=== PATIENT | female | born 2000 | race Hispanic/Latino ===

== ENCOUNTER 2019-07-04 12:00 | Emergency (ER) | payer OTHER ==
[~2019-07-04] VITALS: Ht 167.6 cm; Wt 55.1 kg
[2019-07-04 12:02] VITALS: BP 118/67
[2019-07-04] MEDS ORDERED: NEXP1IMP SC (12:09)
== END 2019-07-04 12:43 | disposition home or self-care (01) ==
LOC: M ED 12:00
DX: H72.91 Unspecified perforation of tympanic membrane, right ear (principal); S09.21XA Traumatic rupture of right ear drum, initial encounter; X58.XXXA Exposure to other specified factors, initial encounter; Y92.9 Unspecified place or not applicable; Y93.89 Activity, other specified; Y99.9 Unspecified external cause status; Z79.3 Long term (current) use of hormonal contraceptives

== ENCOUNTER 2019-12-12 09:33 | Emergency (ER) | payer OTHER, SELFPAY ==
[~2019-12-12] VITALS: Ht 167.6 cm; Wt 50.2 kg
[2019-12-12 09:33] VITALS: BP 116/81
[~2019-12-12 09:33] MED LIST: NEXP1IMP SC
[2019-12-12] MEDS ORDERED: NON-325T5 PO (09:55)
[2019-12-12] MEDS ORDERED: BENA25CA4 PO (09:55)
[2019-12-13] MEDS ORDERED: IBUP200C25 PO (13:46)
[2019-12-13] MEDS ORDERED: KEFL500C17 PO (14:24)
[2019-12-13] MEDS ORDERED: PRED10TA2 PO (14:24)
== END 2019-12-12 10:41 | disposition home or self-care (01) ==
LOC: M ED 09:33
DX: T63.441A Toxic effect of venom of bees, accidental (unintentional), initial encounter (principal); Y92.9 Unspecified place or not applicable; Y93.9 Activity, unspecified

== ENCOUNTER 2019-12-13 13:32 | Emergency (ER) | payer OTHER ==
[~2019-12-13] VITALS: Ht 167.6 cm; Wt 51.6 kg
[~2019-12-13 13:32] MED LIST changes: +BENA25CA4 PO; +NON-325T5 PO
[2019-12-13] MEDS ORDERED: IBUP200C25 PO (13:46)
[2019-12-13] MEDS ORDERED: PRED10TA2 PO (14:24)
[2019-12-13] MEDS ORDERED: KEFL500C17 PO (14:24)
[2019-12-13] MEDS ORDERED: CEPHALEXIN 500 MG CAP PO ONE (14:30)
[2019-12-13] MEDS ORDERED: predniSONE 20 MG TAB PO ONE (14:30)
[2019-12-13 14:35] VITALS: BP 112/60
== END 2019-12-13 14:39 | disposition home or self-care (01) ==
LOC: M ED 13:32
DX: L03.113 Cellulitis of right upper limb (principal); R22.31 Localized swelling, mass and lump, right upper limb

== ENCOUNTER 2019-12-16 11:18 | Emergency (ER) | payer OTHER ==
[~2019-12-16] VITALS: Ht 167.6 cm; Wt 52.1 kg
[~2019-12-16 11:18] MED LIST changes: +IBUP200C25 PO; +KEFL500C17 PO; +PRED10TA2 PO
[2019-12-16 12:19] VITALS: BP 127/71
== END 2019-12-16 12:58 | disposition home or self-care (01) ==
LOC: M ED 11:18
DX: T63.441A Toxic effect of venom of bees, accidental (unintentional), initial encounter (principal); Y92.9 Unspecified place or not applicable; Y93.9 Activity, unspecified

== ENCOUNTER → 2020-10-06 | Outpatient (CLI) | payer OTHER ==
[~2020-10-06] MED LIST changes: +ACET32TAB PO; -NON-325T5 PO
--- NOTE | 2020-10-07 00:04 | REP ---
INDICATION: PREG DI/DI TWIN GROWTH COMPARISON: None. TECHNIQUE: Transabdominal obstetrical ultrasound with color Doppler evaluation. FINDINGS: Examination demonstrates diamniotic dichorionic twin gestation. Cervix measures 2.9 cm cm in length and appears closed. Concordant growth is noted. Gestational age by LMP at 32 weeks 1 day with estimated date of delivery 11/30/2020. TWIN A: Twin A identified in cephalic presentation along the maternal left side. Placenta is noted posterior and grade 2 without evidence for placenta previa or abruption. motion is appreciated. Amniotic fluid volume is normal and the deepest pocket measures 4.7 cm. FHR equals 140 beats per minute. Gestational age by current measurements: 32 weeks 4 days. Estimated weight 2112 grams (71st percentile). Limited anatomical assessment without obvious abnormality. TWIN B: Twin B identified in transverse presentation along the maternal right side. Placenta is noted anterior and grade 2 without evidence for placenta previa or abruption. motion is appreciated. Amniotic fluid volume is normal and the deepest pocket measures 6.1 cm. FHR equals 165 beats per minute. Gestational age by current measurements: 32 weeks 0 days. Estimated weight 1941 grams (45th percentile). Limited anatomical assessment without obvious abnormality. IMPRESSION: Diamniotic dichorionic twin gestation demonstrating appropriate concordant growth. No gross abnormalities are identified. <Electronically signed by Rajeev Johnson > 10/07/20 0000
== END ==
LOC: M RAD 15:11
PROVIDERS: ATTEND Obstetrics & Gynecology
DX: O30.043 Twin pregnancy, dichorionic/diamniotic, third trimester (principal); Z3A.32 32 weeks gestation of pregnancy

== ENCOUNTER 2020-11-04 15:07 | Outpatient (CLI) | payer OTHER ==
[~2020-11-04] VITALS: Ht 167.6 cm; Wt 83.3 kg
[2020-11-04 15:32] VITALS: BP 141/81
[2020-11-04] MEDS ORDERED: VITA100T59 PO (15:36)
[2020-11-04] MEDS ORDERED: PRENTAB9 PO (15:36)
[2020-11-04] MEDS ORDERED: FOLI400T13 PO (15:36)
[2020-11-04] MEDS ORDERED: ASPI81CH33 PO (15:36)
[2020-11-04] MEDS ORDERED: HOME MED LIST COMPLETE! XX SCH (15:40)
[2020-11-04 16:45] VITALS: BP 133/90
[2020-11-04 16:46] VITALS: BP 144/83
--- NOTE | 2020-11-04 17:22 | IPNPDOC ---
Text Note Date of Service The patient was seen on 11/04/20. NOTE 1700 hours PATIENT SENT FROM CLINIC FOR PROLONGED MONITORING . RISK FACTORS DI/DI TWINS AT 36.6 WEEKS LMP 01/20/20 EDC BY US AT 7.2 WEEKS 11/30/20 , VEGAN BMI 14.1 EXAMINATION NST CATEGORY 1 STRIP X2 OCCASIONAL CONTRACTIONS ACCELERATIONS NOTED NO DECELERATIONS , CERVICAL EXAMINATION POSTERIOR HIGH ND THICK VERTEX BALLOTABLE PLAN CONTINUE WITH SCHEDULED MONITORING AT CLINIC REVIEWED PROM BLEEDING CONTRACTIONS Q 5-7 MINUTES GBS PENDING . EXPRESSED UNDERSTANDING DISCHARGED UNDELIVERED VS,Fishbone, I+O VS, Fishbone, I+O Vital Signs Date Time Temp Pulse Resp B/P (MAP) Pulse Ox O2 Delivery O2 Flow Rate FiO2 11/04/20 15:32 97.6 84 14 141/81 (101) Tolu Garcia MD Nov 04, 2020 17:22
== END 2020-11-04 17:15 | disposition home or self-care (01) ==
LOC: M LDO 15:07
PROVIDERS: ATTEND Obstetrics & Gynecology
DX: O60.03 Preterm labor without delivery, third trimester (principal); Z3A.38 38 weeks gestation of pregnancy; O30.043 Twin pregnancy, dichorionic/diamniotic, third trimester
CPT/HCPCS: 59025; G0378; G0463

== ENCOUNTER 2020-11-04 22:30 | Inpatient (IN) | payer OTHER ==
[~2020-11-04] VITALS: Ht 167.6 cm; Wt 83.2 kg
[~2020-11-04 22:30] MED LIST changes: +ASPI81CH33 PO; +FOLI400T13 PO; +PRENTAB9 PO; +VITA100T59 PO
[2020-11-04 23:11] VITALS: BP 135/81
[2020-11-04] MEDS ORDERED: OXYTOCIN INJ 10 UNITS/ML VIAL (J2590) IV PRN (23:45)
[2020-11-04] MEDS ORDERED: LACTATED RINGER'S 1000 ML IV ONE (23:45)
[2020-11-04] MEDS ORDERED: METHYLERGONOVINE MALEATE 0.2 MG/ML VIAL (J2210) IM PRN (23:45)
[2020-11-04] MEDS ORDERED: OXYTOCIN DRIP 30 UNITS in IV 1 EA IV PRN ×4 (23:45)
[2020-11-04] MEDS: LR 1,000 ML IV SCH (23:45)
[2020-11-04] MEDS ORDERED: PENICILLIN G POTASSIUM IV 5 MU in D5W MINI-BAG PLUS 100 ML IV STA (23:45)
[2020-11-04] MEDS ORDERED: CARBOPROST TROMETHAMINE 250 MCG/ML AMP IM PRN (23:45)
[2020-11-05] VITALS (43 sets, daily range): BP systolic 94–152; BP diastolic 55–89
[2020-11-05 00:10] LABS: HEMATOCRIT 34.4 % (36.0-47.0); HEMOGLOBIN 11.8 g/dl (12.0-15.5); MEAN CORPUSCULAR HEMOGLOBIN 33.1 pg (27.0-33.0); MEAN CORPUSCULAR HGB CONC 34.3 g/dl (32.0-36.5); MEAN CORPUSCULAR VOLUME 96.6 fl (80.0-96.0); PLATELET COUNT, AUTOMATED 189 10^3/uL (150-450); RED BLOOD COUNT 3.56 10^6/uL (4.00-5.40); WHITE BLOOD COUNT 9.5 10^3/uL (4.0-10.0)
[2020-11-05 00:15] LABS: ALT/SGPT 17 U/L (12-78); BILIRUBIN,TOTAL 0.3 MG/DL (0.2-1.0); CREATININE FOR GFR 0.51 MG/DL (0.55-1.30); GLOMERULAR FILTRATION RATE > 60.0 (>60); LDH LACTATE DEHYDROGENASE 165 U/L (84-246)
[2020-11-05 00:31] LABS: CREATININE,RANDOM URINE 37.2 MG/DL; TOTAL PROTEIN,RANDOM URINE 28.8 MG/DL (0.0-12.0)
--- NOTE | 2020-11-05 00:52 | HPEPDOC ---
Obstetrical History & Physical General Date of Admission Item Value Date Time Urine Random Total Protein 28.8 MG/DL H 11/04/202302 Urine Random Creatinine 37.2 MG/DL 11/04/202302 Item Value Date Time Lactate Dehydrogenase 165 U/L 11/04/202302 Alanine Aminotransferase (ALT/SGPT) 17 U/L 11/04/202302 Aspartate Amino Transf (AST/SGOT) 16 U/L 11/04/202302 Total Bilirubin 0.3 MG/DL 11/04/202302 Uric Acid 6.0 MG/DL 11/04/202302 Glomerular Filtration Rate > 60.0 11/04/202302 Creatinine 0.51 MG/DL L 11/04/202302 Item Value Date Time White Blood Count 9.5 10^3/uL 11/04/202302 Red Blood Count 3.56 10^6/uL L 11/04/202302 Hemoglobin 11.8 g/dl L 11/04/202302 Hematocrit 34.4 % L 11/04/202302 Mean Corpuscular Volume 96.6 fl H 11/04/202302 Mean Corpuscular Hemoglobin 33.1 pg H 11/04/202302 Mean Corpuscular Hemoglobin Concent 34.3 g/dl 11/04/202302 Red Cell Distribution Width 12.4 % 11/04/202302 Platelet Count 189 10^3/uL 11/04/203 Nov 04, 2020 at 23:30 Primary Care Physician: Tolu Garcia MD History of Present Illness 2359 PM 20 YO AT 36.4 WEEKS HX SROM CLEAR NO CONTRACTIONS GBS STATUS UNKNOWN.LMP 01/20/20 EDC BY US 7.2 WEEKS 11/30/20 Chief Complaint: Contractions, pre-term (SROM CLEAR FLUID ) Information Provided By: Patient Age: 20 : 1 Term: 0 Pre-term: 0 Abortions: 0 Livin Care Care: Good Care Number of Visits: 9 Dating Final EDC: Nov 30, 2020 Final EDC for Daily Update: Nov 30, 2020 Final EDC by: LMP LMP: Jan 20, 2020 1st Trimester Date: Apr 15, 2020 Weeks + Days: 7.2 Estimated Date of Confinement: Nov 30, 2020 EGA at Admission: 36.3 Antepartum Course Diagnos(e)s SROM AT 36.3 WEEKS DI/DI TWINS Height (inches): 66 Pre- weight (lbs.): 114 Admission Weight (lbs.): 183 Change in Weight (lbs.): 69 Past Medical History Past Obstetrical History : Past Obstetrical History: Primgravida [employer] History: No pertinent history Past Medical History Medical History NO PERTENANT HISTORY Surgical History: [place] teeth Family History Significant Family History: Cancer (BREAST CANCER GRAND MOTHER, DM11 GRAND FATHER) Social History Social history NON SMOKER NO VAPING NO ETOH NO RECREATIONAL DRUGS, NO VIOLENCE Marital Status: Family situation: Spouse/partner home Psychosocial History: PTSD (SEES ) * Smoker: non-smoker Alcohol: Denies Drugs: denies Abuse Violence Screening Have you been hit/kicked/slapp: No Have you been sexually assault: No Imunizations Tdap status: current Influenza Status: current Allergies Coded Allergies: No Known Allergies (Verified Allergy, Unknown, 07/04/19) Medications Scheduled Ascorbic Acid (Vitamin C) 100 Mg Tablet, 1 TAB PO DAILY Aspirin (Aspirin) 81 Mg Tab.chew, 81 MG PO DAILY for pain Folic Acid (Folic Acid) 0.4 Mg Tablet, 1 TAB PO DAILY No.137/Iron/Folic Acd ( Vitamin Tablet) 1 Each Tablet, 1 TAB PO DAILY Physical Examination Physical Examination GENERAL: Alert and oriented times three. BREAST: . ABDOMEN: Gravid and non-tender to touch. FETUS: Is vertex (VTX) by sterile vaginal examination (SVE), fetus is vertex (VTX) by Cristian. CONFIRMED SROM CLEAR HEART RATE: Regular rate and rhythm. LUNGS: Clear to auscultation (CTA). EXTREMITIES: No edema. No clonus. Deep tendon reflexes (DTRs) + . Other physical findings DISTRESSED WITH SROM AND DELIVERY WAS NOT PREPARED. NORMOCEPHALIC PERRLA, ATRAUMATIC NECK FULL RANGE MOTION, CHEST CLEAR TO BASES DISTAL PULSES NORMAL NO RHALS, NO WHEEZE NO RHONCHI NO CVA TENDERNESS ABDOMEN SOFT SF HEIGHT 36 CM 4 QUADRANT BOWEL SOUNDS VERTEX TWIN A T/S BACK UP TWIN B NO RASHES LESIONS OR PARIETIS. NO ARTHRALGIA,MYALGIA, NO JOINT PAIN. NO COMPLAINT COUGH WHEEZE NO SOB NO FREQUENCY NO URGENCY NO BRUISING NO NEURO DEFECTS REFLEXES NORMAL NO N/V/D/C NO DIABETIC OR VIRAL ISSUES Vital Signs/I&O Vital Signs Date Time Temp Pulse Resp B/P (MAP) Pulse Ox O2 Delivery O2 Flow Rate FiO2 11/04/20 23:11 103 135/81 (99) Laboratory Data 24H LABS Laboratory Tests 2 11/04/20 23:39: Serology Scanned Report Hepatitis B Testing Pertinent Laboratoy Data Blood Type: A+ RBC Antibody Screen: Negative HIV: Negative Hepatitis B: Negative Rapid Plasma Reagin: Nonreactive Rubella: Immune Varicella: Nonreactive Chlamydia/Gonorrhea: Negative Group B Streptococcus: Unknown Cystic Fibrosis: Negative Anatomy Ultrasound Ultrasound Date: Oct 06, 2020 Placenta Location: Anterior Normal Anatomy: Yes Placenta Previa: No Estimated Weight (grams): 2111 Other Ultrasounds DI/DI TWINS TWIN A VERTEX 2111 GRAMS TWIN B T/ 1940 GRAMS Steroid Therapy Steroid Therapy: No Vaginal Examination Dilation: Fingertip Effacement: 30% Station: -3 Cervical Consistency: Medium Cervical Position: Posterior Presentation: Cephalic presentation Position: Four quadrants, Vertex (occiput) Assessment Variability: Moderate Accelerations: Present Decelerations: None Tocometer Contractions: Yes Frequency: irregular, every 1-5 min. Duration: less than 60 seconds Strength: palpated as mild Assessment/Plan Assessment 20 year-old (G)1 para (P)0 at 36,3 weeks by 7.2 -week ultrasound. Presents to Labor and Delivery (L&D) SROM CLEAR . 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 Diet: NPO Group B Streptococcus (GBS) UNKNOWN Labs and intravenous (IV) per unit protocol. Counseled on Pitocin and AUGMENTATION Lactated Ringers (LR): Bolus 1000mL, PRE EPIDURAL then at 125 mL/hr. Anticipate [normal spontaneous delivery ()].X2 C-S as appropriate. Labor and Delivery Counseling REVIEWED DELIVERY VAGINAL OF TWINS RE DI/DI . TWIN A VERTEX ANTICIPATE PROGRESSION REVIEW STATUS OF TWIN B EITHER VERTEX OR BREECH, ASSESSMENT RE BREECH EXTRACTION OR VERSION TO VERTEX POSSIBLE USE OF FORCEPS OR VACUUM POSSIBLE NEED FOR EMERGENCY CS FOR REASONS IF REMOTE FROM DELIVERY. NEED FOR AUGMENTATION MAY LEAD TO UTERINE ASYSTOLE UTERINE RUPTURE EMERGENCY CS . WITH TWINS HIGHER RISK OF UTERINE ATONY LEADING TO BLOOD TRANSFUSIONS OR RISK OF HYSTERECTOMY FOR LIFE THREATENING BLEEDING. POSSIBLE OF ADMISSION TO NICU FOR TRANSITION. NICU NOTIFIED ABOUT ADMISSION PRE TERM AND GBS STATUS EXPRESSED UNDERSTANDING SAFE TO PROCEED 30 MINUTES DISCUSSION . P/C RATIO .77 Tolu Garcia MD Nov 05, 2020 00:36
[2020-11-05] MEDS ORDERED: FENTANYL 2MCG/ML ROPIVACAINE 0.2% IN 0.9% NACL 100ML IVBAG As Ordered ONE ×2 (03:30→11:10)
[2020-11-05] MEDS: PENICILLIN G POTASSIUM IV 2.5 MU in IV 1 EA IV SCH ×4 (03:45→16:00)
--- NOTE | 2020-11-05 06:23 | IPNPDOC ---
Text Note Date of Service Item Value Date Time Urine Random Creatinine 37.2 MG/DL 11/04/202302 Urine Random Total Protein 28.8 MG/DL H 11/04/202302 Item Value Date Time Creatinine 0.51 MG/DL L 11/04/202302 Glomerular Filtration Rate > 60.0 11/04/202302 Uric Acid 6.0 MG/DL 11/04/202302 Total Bilirubin 0.3 MG/DL 11/04/202302 Aspartate Amino Transf (AST/SGOT) 16 U/L 11/04/202302 Alanine Aminotransferase (ALT/SGPT) 17 U/L 11/04/202302 Lactate Dehydrogenase 165 U/L 11/04/202302 Item Value Date Time White Blood Count 9.5 10^3/uL 11/04/202302 Red Blood Count 3.56 10^6/uL L 11/04/202302 Hemoglobin 11.8 g/dl L 11/04/202302 Hematocrit 34.4 % L 11/04/202302 Mean Corpuscular Volume 96.6 fl H 11/04/202302 Mean Corpuscular Hemoglobin 33.1 pg H 11/04/202302 Mean Corpuscular Hemoglobin Concent 34.3 g/dl 11/04/202302 Red Cell Distribution Width 12.4 % 11/04/202302 Platelet Count 189 10^3/uL 11/04/202302 The patient was seen on 11/05/20. NOTE 0600 11/05/2020 assessment post epidural category 1 strip x2 moderate variability x2 baseline normal x2 contractions 1-3 minutes , pelvic examination anterior 2 cm -3 station 50% effaced . safe to proceed VS,Fishbone, I+O VS, Fishbone, I+O Laboratory Tests 11/04/20 23:03 Vital Signs Date Time Temp Pulse Resp B/P (MAP) Pulse Ox O2 Delivery O2 Flow Rate FiO2 11/04/20 23:11 103 135/81 (99) Tolu Garcia MD Nov 05, 2020 06:21
[2020-11-05] MEDS: LR 1,000 ML IV SCH (08:02)
[2020-11-05] MEDS ORDERED: OXYTOCIN DRIP 30 UNITS in IV 1 EA IV SCH (08:35)
[2020-11-05] MEDS ORDERED: ONDANSETRON 4MG/2ML VIAL IV PRN (11:05)
[2020-11-05] MEDS ORDERED: EPIDURAL COMMENT XX SCH (11:05)
[2020-11-05] MEDS ORDERED: diphenhydrAMINE 50MG/ML VIAL (J1200) IV PRN (11:05)
[2020-11-05] MEDS ORDERED: ePHEDrine SULFATE 25 MG/5 ML(5MG/ML) SYRINGE IV PRN (11:05)
[2020-11-05] MEDS ORDERED: EPIDURAL/PCA KEYS XX PRN (11:05)
[2020-11-05] MEDS ORDERED: REFRIGERATOR IV KEYS XX PRN (11:05)
[2020-11-05] MEDS ORDERED: NALOXONE INJ 0.4MG/1ML VIAL (J2310 PER 1MG) IV PRN (11:05)
[2020-11-05] MEDS ORDERED: FENTANYL/ROPIVACAINE/NACL BAG 100 ML EPIDURAL SCH (11:05)
[2020-11-05] MEDS ORDERED: LACTATED RINGER'S 1000 ML IV PRN (11:05)
[2020-11-05 14:25] LABS: CORD GAS ABE A -2.9; CORD GAS HCO3 A 21.5 MEQ/L; CORD GAS O2 SAT A 92.2 %; CORD GAS PH A 7.382 UNITS; CORD GAS PO2 A 48.4 mmHg; CORD GAS TCO2 A 22.6 MEQ/L
[2020-11-05 14:26] LABS: CORD GAS ABE V -9.9; CORD GAS HCO3 V 17.4 MEQ/L; CORD GAS O2 SAT V 95.1 %; CORD GAS PCO2 V 42.6 mmHg; CORD GAS PH V 7.228 UNITS; CORD GAS PO2 V 63.3 mmHg; CORD GAS SBC V 16.9 MEQ/L; CORD GAS TCO2 V 18.7 MEQ/L
[2020-11-05] MEDS ORDERED: LIDOCAINE 1% MDV 20ML VIAL As Ordered ONE (14:42)
[2020-11-05 14:47] LABS: CORD GAS ABE A -4.2; CORD GAS ABE V -8.5; CORD GAS HCO3 A 20.4 MEQ/L; CORD GAS HCO3 V 20.7 MEQ/L; CORD GAS O2 SAT A 90.5 %; CORD GAS O2 SAT V 77.1 %; CORD GAS PCO2 A 36.9 mmHg; CORD GAS PCO2 V 55.8 mmHg; CORD GAS PH A 7.361 UNITS; CORD GAS PH V 7.187 UNITS; CORD GAS PO2 A 45.6 mmHg; CORD GAS PO2 V 36.8 mmHg; CORD GAS SBC A 20.8 MEQ/L; CORD GAS SBC V 17.4 MEQ/L; CORD GAS TCO2 A 21.6 MEQ/L; CORD GAS TCO2 V 22.4 MEQ/L
[2020-11-05] MEDS ORDERED: LIDOCAINE 1% MDV 20ML VIAL INFIL ONE (15:00)
--- NOTE | 2020-11-05 15:17 | DNPDOC ---
[facility] Delivery Note Delivery Note DATE OF DELIVERY: 11/05/20 PREDELIVERY DIAGNOSIS: 36+4/7 weeks' gestation and labor. POST DELIVERY DIAGNOSIS: Delivered. PROCEDURE: Induction of labor, amniotomy, Spontaneous vaginal delivery of dichorionic diamniotic twins DIRECTOR PARK: Dr. Arsalan Eduardo DO DIP UNIT OPERATOR: Dr. Colleen Levy DO ANESTHESIA: epidural ESTIMATED BLOOD LOSS: 30 mL. FINDINGS: baby A 2740g 9/9, baby B 2700g 9/9 DELIVERY SUMMARY: Ms. Gabriel is a 20yo at 36+4 who presented with PPROM with di di twins. She was ultrasounded and both babies were cephalic with minimal discordance. She was induced with pitocin and progressed to C/C/+3 and with good maternal effort she delivered the head of baby A followed by the corpus without difficulty. There was a tight nuchal cord that was reduced at the perineum. The cord was clamped and a segment obtained for gasses. The placenta was tagged with one plastic clamp. The baby had spontaneous movement and cry. Ultrasound was performed in complication with palpation and baby B remained cephalic. A few contractions were needed to bring baby B closer to the cervix and occlude umbilical entrapment. Then an amniotomy was performed for baby B and the cervix was 9cm. The fluid was blood tinged. She progressed to C/C/+3 and with good maternal effort delivered baby B. The baby had spontaneous movement and cry. The delivery was assisted by the father of the baby. The cord clamping was delayed 60s and then cut buy the father of the baby. A segment was obtained for gasses. The placenta was tagged with two plastic clamps. The placentas delivered as one with gentle downward traction. They were inspected and were in-tact, connected only by amniotic membranes. The uteurs was firm with pitocin and bimanual massage. There was a second degree laceration that was repaired with 2-0 vicryl in the usual fashion. The surgical site was hemostatic. The uterus remained firm and bleeding scant. The sponge, lap, and needle counts were correct. There were no complications. ARSALAN EDUARDO DO Nov 05, 2020 15:17
[2020-11-05] MEDS ORDERED: DOCUSATE SODIUM 100MG CAPSULE PO PRN (15:20)
[2020-11-05] MEDS ORDERED: DIBUCAINE 1% OINTMENT 30GM TOP PRN (15:20)
[2020-11-05] MEDS ORDERED: ACETAMINOPHEN TAB 650MG DOSE (2X325MG) PO PRN (15:20)
[2020-11-05] MEDS ORDERED: IBUPROFEN 600MG TAB PO PRN (15:20)
[2020-11-05] MEDS: ACETAMINOPHEN 500 MG TAB PO PRN (16:08)
[2020-11-05] MEDS: IBUPROFEN 800 MG TAB PO PRN (19:16)
[2020-11-06] MEDS: ACETAMINOPHEN 500 MG TAB PO PRN ×2 (01:05→19:40)
--- NOTE | 2020-11-06 05:29 | IPNPDOC ---
Progress Note Date of Service: Nov 06, 2020 Day#: 1 Progress Note Ms. Gabriel is a 20yo who presented with PPROM with di di twins at 36 wks and was inducted. She had an uncomplicated vaginal delivery x2, baby A 2740g 9/9, baby B 2700g 9/9, with a second degree midline laceration. She has been ambulating, voiding spontaneously without issue and tolerating regular diet. Breast feeding without issue. Reports lochia is less than a normal period]. Patient is ambulating well. [Reports some cramping with . Denies any pain. Voiding and stooling without difficulty]. OBJECTIVE: VITAL SIGNS: Within normal limits, afebrile. Alert and oriented times three. No increased WOB Heart rate: non-tachycardic Abdomen: Fundus firm at U-2. Soft, NTTP. [Minimal] lochia per patient ASSESSMENT: [Ms. Gabriel is a 20yo who presented with PPROM with di di twins at 36 wks and was inducted. She had an uncomplicated vaginal delivery x2, baby A 2740g 9/9, baby B 2700g 9/9, with a second degree midline laceration. Vitals within normal limits, afebrile, hemodynamically stable with no evidence of infection. PLAN: 1. Discharge to home likely tomorrow 2. Tylenol and Motrin for pain. 3. Encourage breast feeding and ambulation. 4. Undecided contraception, educated on risk of close interval . 5. Routine PP visit in 6 weeks in clinic. 6. Discussed return precautions at length to include pelvic rest. 7. Recommended varicella vaccine. VS, I&O, 24H, Fishbone Vital Signs/I&O Vital Signs Date Time Temp Pulse Resp B/P (MAP) Pulse Ox O2 Delivery O2 Flow Rate FiO2 11/05/20 18:01 99.3 84 18 123/73 (90) I&O- Last 24 Hours up to 6 AM 11/06/20 06:00 Intake Total 3722.2 ml Output Total 2225 ml Balance 1497.2 ml Laboratory Data 24H LABS Laboratory Tests 2 11/05/20 14:19: Cord Arterial Blood pH 7.382, Cord Arterial Blood PCO2 37.0, Cord Arterial Blood PO2 48.4, Cord Arterial Blood HCO3 21.5, Cord Arterial Blood Total CO2 22.6, Cord Arterial Blood Base Excess -2.9, Cord Arterial Base Excess (Standard 22.0, Cord Arterial Bld Oxygen Saturation 92.2, Cord Venous Blood pH 7.228, Cord Venous Blood PCO2 42.6, Cord Venous Blood PO2 63.3, Cord Venous Blood HCO3 17.4, Cord Venous Blood Total CO2 18.7, Cord Venous Base Excess (Actual) -9.9, Cord Venous Base Excess (Standard) 16.9, Cord Venous Blood Oxygen Saturation 95.1 11/05/20 14:25: Cord Arterial Blood pH 7.361, Cord Arterial Blood PCO2 36.9, Cord Arterial Blood PO2 45.6, Cord Arterial Blood HCO3 20.4, Cord Arterial Blood Total CO2 21.6, Cord Arterial Blood Base Excess -4.2, Cord Arterial Base Excess (Standard 20.8, Cord Arterial Bld Oxygen Saturation 90.5, Cord Venous Blood pH 7.187, Cord Venous Blood PCO2 55.8, Cord Venous Blood PO2 36.8, Cord Venous Blood HCO3 20.7, Cord Venous Blood Total CO2 22.4, Cord Venous Base Excess (Actual) -8.5, Cord Venous Base Excess (Standard) 17.4, Cord Venous Blood Oxygen Saturation 77.1 LYNN EDUARDO DO Nov 06, 2020 05:29
[2020-11-06] MEDS: IBUPROFEN 800 MG TAB PO PRN ×2 (06:06→14:25)
[2020-11-06 06:16] VITALS: BP 135/82
[2020-11-06] MEDS: PRENATAL VITAMINS CHEWABLE TABLET PO SCH (14:28)
[2020-11-06 18:00] VITALS: BP 128/79
[2020-11-07] MEDS: ACETAMINOPHEN 500 MG TAB PO PRN ×2 (05:18→23:55)
[2020-11-07 06:00] VITALS: BP 123/76
[2020-11-07] MEDS: PRENATAL VITAMINS CHEWABLE TABLET PO SCH (08:32)
[2020-11-07] MEDS: IBUPROFEN 800 MG TAB PO PRN ×2 (08:33→17:29)
[2020-11-07 17:57] VITALS: BP 135/85
--- NOTE | 2020-11-08 05:52 | IPNPDOC ---
Progress Note Date of Service: Nov 07, 2020 Day#: 2 Progress Note Ms. Gabriel is a 20yo who presented with PPROM with di di twins at 36 wks and was induced. She had an uncomplicated vaginal delivery x2, baby A 2740g 9/9, baby B 2700g 9/9, with a second degree midline laceration. She has been ambulating, voiding spontaneously without issue and tolerating regular diet. Breast feeding without issue. Reports lochia is less than a normal period. OBJECTIVE: VITAL SIGNS: Within normal limits, afebrile. Alert and oriented times three. No increased WOB Heart rate: non-tachycardic Abdomen: Fundus firm at U-2. Soft, NTTP Parineum. ASSESSMENT: Ms. Gabriel is a 20yo PPD2 who presented with PPROM with di di twins at 36 wks and was inducted. She had an uncomplicated vaginal delivery x2, baby A 2740g 9/9, baby B 2700g 9/9, with a second degree midline laceration. Vitals within normal limits, afebrile, hemodynamically stable with no evidence of infection. PLAN: 1. Discharge to home likely tomorrow 2. Tylenol and Motrin for pain. 3. Encourage breast feeding and ambulation. 4. Undecided contraception, educated on risk of close interval . 5. Routine PP visit in 6 weeks in clinic. 6. Discussed return precautions at length to include pelvic rest. 7. Recommended varicella vaccine. VS, I&O, 24H, Fishbone Vital Signs/I&O Vital Signs Date Time Temp Pulse Resp B/P (MAP) Pulse Ox O2 Delivery O2 Flow Rate FiO2 11/07/20 06:00 98.8 64 16 123/76 (92) 99 Room Air PAOLO CHATMAN MD Nov 07, 2020 9:32 am
[2020-11-08 06:00] VITALS: BP 134/83
[2020-11-08] MEDS: PRENATAL VITAMINS CHEWABLE TABLET PO SCH (07:15)
[2020-11-08] MEDS: IBUPROFEN 800 MG TAB PO PRN (07:15)
--- NOTE | 2020-11-08 07:20 | OBDS ---
[facility] Obstetrical Discharge Sum. Obstetrical Discharge Summary Date: Nov 08, 2020 Time: 05:53 VDRL: ABO Blood Group (A) Rh: Positive Sex: Female A/P, Post Course List any complications Admission diagnosis: PPROM, D/D Twin Discharge diagnosis: same and delivered Condition at Discharge: stable Discharge Instructions:Home Activity: pelvic rest for 6 weeks Diet: regular Medications: at [place] Follow-up: 6 weeks in clinic Other: n/a Ms. Gabriel is a 20yo who presented with PPROM with di di twins at 36 wks and was induced. She had an uncomplicated vaginal delivery x2, baby A 2740g 9/9, baby B 2700g 9/9, with a second degree midline laceration. She has been ambulating, voiding spontaneously without issue and tolerating regular diet. Breast feeding without issue. Reports lochia is less than a normal period. OBJECTIVE: VITAL SIGNS: Within normal limits, afebrile. Alert and oriented times three. No increased WOB Heart rate: non-tachycardic Abdomen: Fundus firm at U-2. Soft, NTTP Parineum. ASSESSMENT: Ms. Gabriel is a 20yo PPD3 who presented with PPROM with di di twins at 36 wks and was induced. She had an uncomplicated vaginal delivery x2, baby A 2740g 9/9, baby B 2700g 9/9, with a second degree midline laceration. Vitals within normal limits, afebrile, hemodynamically stable with no evidence of infection. PLAN: 1. Discharge to home likely today 2. Tylenol and Motrin for pain. 3. Encourage breast feeding and ambulation. 4. Undecided contraception, educated on risk of close interval . 5. Routine PP visit in 6 weeks in clinic. 6. Discussed return precautions at length to include pelvic rest. 7. Recommended varicella vaccine PAOLO CHATMAN MD Nov 08, 2020 5:57 am
[2020-11-08] MEDS ORDERED: ACET-683 PO (07:23)
[2020-11-08] MEDS ORDERED: IBUP80TA PO (07:23)
== END 2020-11-08 11:01 | disposition home or self-care (01) | DRG 807 ==
LOC: M LDO 22:30 → M LDI 23:30 → M OBS 11-05 17:55
PROVIDERS: ADMIT Obstetrics & Gynecology; ATTEND Obstetrics & Gynecology
PROC: 3E033VJ Introduction of Other Hormone into Peripheral Vein, Percutaneous Approach (ICD-10-PCS; 2020-11-04)
PROC: 10E0XZZ Delivery of Products of Conception, External Approach (ICD-10-PCS; principal; 2020-11-05)
PROC: 0KQM0ZZ Repair Perineum Muscle, Open Approach (ICD-10-PCS; 2020-11-05)
PROC: 10907ZC Drainage of Amniotic Fluid, Therapeutic from Products of Conception, Via Natural or Artificial Opening (ICD-10-PCS; 2020-11-05)
DX: O42.013 Preterm premature rupture of membranes, onset of labor within 24 hours of rupture, third trimester (principal); Z37.2 Twins, both liveborn; Z3A.36 36 weeks gestation of pregnancy; O30.043 Twin pregnancy, dichorionic/diamniotic, third trimester; O69.1XX1 Labor and delivery complicated by cord around neck, with compression, fetus 1; O70.1 Second degree perineal laceration during delivery

== ENCOUNTER 2020-11-22 14:45 | Emergency (ER) | payer OTHER ==
[~2020-11-22] VITALS: Ht 167.6 cm; Wt 63.6 kg
[2020-11-22 14:45] VITALS: BP 122/65
[~2020-11-22 14:45] MED LIST changes: +ACET-683 PO; +IBUP80TA PO
== END 2020-11-22 15:21 | disposition left against medical advice (07) ==
LOC: M ED 14:45
DX: Z53.21 Procedure and treatment not carried out due to patient leaving prior to being seen by health care provider (principal)